=== PATIENT | male | born 1955 | race Caucasian/White ===

== ENCOUNTER 2017-11-24 11:06 | Inpatient (IN) | payer OTHER ==
[~2017-11-24] VITALS: Ht 177.8 cm; Wt 123.4 kg
[2017-11-24 11:44] LABS: BASOPHILS % (AUTO) 0.8 % (0.0-5.0); EOSINOPHILS % (AUTO) 0.5 % (0.0-8.0); HEMATOCRIT 41.2 % (42-54); LYMPHOCYTES % (AUTO) 9.1 % (21.0-51.0); MEAN CORPUSCULAR HEMOGLOBIN 29.4 pg (27.0-33.0); MEAN CORPUSCULAR HGB CONC 34.9 g/dL (32.0-36.0); MEAN CORPUSCULAR VOLUME 84.2 fL (79-99); MONOCYTES % (AUTO) 6.5 % (3.0-13.0); NEUTROPHILS % (AUTO) 83.1 % (40.0-77.0); PLATELET COUNT (AUTO) 267 K/uL (130-400); WHITE BLOOD COUNT (AUTO) 18.5 K/uL (4.8-10.8)
[2017-11-24] MEDS ORDERED: CEFTRIAXONE SODIUM 2 GM VIAL ONE (11:46)
[2017-11-24] MEDS ORDERED: SODIUM CHLORIDE 0.9% 1000ML 1,000 ML IV ONE (11:46)
[2017-11-24] MEDS ORDERED: VANCOMYCIN 2 GM in SODIUM CHLORIDE 0.9% 500ML 500 ML IV SCH (12:00)
[2017-11-24 12:04] LABS: INR 1.18 (0.85-1.15); PROTHROMBIN TIME 12.3 SEC (9.6-11.6)
[2017-11-24 12:17] LABS: CARBON DIOXIDE 25 mmol/L (21-32); CHLORIDE 101 mmol/L (101-111); CREATININE 1.2 mg/dL (0.5-1.5); GLOMERULAR FILTR. RATE CALC 65 mL/min (>60); GLUCOSE,RANDOM 116 mg/dL (70-105); POTASSIUM 3.2 mmol/L (3.5-5.1); SODIUM SERUM 137 mmol/L (136-145); UREA NITROGEN, BLOOD 16 mg/dL (7-18)
[2017-11-24 12:29] LABS: ALANINE AMINOTRANSFERASE 59 U/L (12-78); ALBUMIN 2.7 g/dL (3.5-5.0); ASPARTATE AMINOTRANSFERASE 37 U/L (10-37); BILIRUBIN,TOTAL 0.9 mg/dL (0.2-1.0); CREATINE KINASE MB 1.6 ng/mL (0.5-3.6); CREATINE KINASE, TOTAL 135 U/L (21-232); MYOGLOBIN 161 ng/mL (10-92); TOTAL PROTEIN, SERUM 7.5 g/dL (6.0-8.3); TROPONIN I < 0.04 ng/mL (0.00-0.06)
[2017-11-24 13:37] LABS: APPEARANCE,URINE CLEAR (CLEAR); BILIRUBIN,URINE NEGATIVE (NEGATIVE); COLOR,URINE YELLOW (YELLOW); GLUCOSE, URINE (UA) 100 mg/dL (NEGATIVE); KETONES,URINE NEGATIVE (NEGATIVE); LEUKOCYTE ESTERASE ,URINE NEGATIVE (NEGATIVE); NITRATE,URINE NEGATIVE (NEGATIVE); OCCULT BLOOD,URINE NEGATIVE (NEGATIVE); PROTEIN,URINE NEGATIVE (NEGATIVE); UROBILINOGEN,URINE >=8.0 mg/dL (0.2-1.0)
[2017-11-24 13:59] LABS: BACTERIA,URINE Rare /HPF (None Seen); SQUAMOUS EPITHELIAL CELL,UR Rare /HPF (0-2); WBC,URINE 0-1 /HPF (0-1)
[2017-11-24 15:01] VITALS: BP 151/86
[2017-11-24] MEDS ORDERED: ACETAMINOPHEN 325 MG TAB PO PRN ×2 (16:30)
[2017-11-24] MEDS ORDERED: CLONIDINE HCL 0.1 MG TABLET PO PRN (16:30)
[2017-11-24] MEDS ORDERED: MORPHINE SULFATE 2 MG/ML 1ML SYG IVP PRN (16:30)
[2017-11-24] MEDS ORDERED: ONDANSETRON HCL MDV 20ML 2 MG/ML VIAL IVP PRN (16:30)
[2017-11-24] MEDS ORDERED: LACTULOSE 20 GM/30 ML UDCUP PO PRN (16:30)
[2017-11-24] MEDS ORDERED: ASPI81TA40 PO (17:13)
[2017-11-24] MEDS: ZOSYN 3.375GM+NS 50ML 50 ML IV SCH (17:22)
[2017-11-24 19:40] VITALS: BP 145/78
[2017-11-24] MEDS ORDERED: LIDOCAINE HCL-MPF 1% 2ML VIAL IVP PRN (23:45)
[2017-11-24] MEDS ORDERED: POTASSIUM CHLORIDE 10% ELIXIR 20 MEQ/15 ML UDCUP PO PRN (23:45)
[2017-11-24] MEDS ORDERED: VANCOMYCIN PROTOCOL PER PHARMACY IV SCH (23:45)
[2017-11-24] MEDS ORDERED: POTASSIUM CHLORIDE 20MEQ/100ML 100 ML IV PRN (23:45)
[2017-11-24 23:57] VITALS: BP 132/71
[2017-11-25] MEDS: ZOSYN 3.375GM+NS 50ML 50 ML IV SCH ×3 (01:45→17:19)
[2017-11-25 03:25] VITALS: BP 144/77
[2017-11-25 04:50] LABS: HEMATOCRIT 36.3 % (42-54); MEAN CORPUSCULAR HEMOGLOBIN 29.7 pg (27.0-33.0); MEAN CORPUSCULAR VOLUME 84.8 fL (79-99); PLATELET COUNT (AUTO) 250 K/uL (130-400); RED BLOOD CELL COUNT(AUTO) 4.28 MIL/uL (4.50-6.20); RED CELL DISTRIBUTION WIDTH 14.2 % (11.0-15.5); WHITE BLOOD COUNT (AUTO) 14.2 K/uL (4.8-10.8)
[2017-11-25 05:01] LABS: CREATININE 1.2 mg/dL (0.5-1.5); POTASSIUM 3.3 mmol/L (3.5-5.1)
[2017-11-25] MEDS: POTASSIUM CHLORIDE 20 MEQ ERTAB PO PRN ×2 (05:55→14:44)
[2017-11-25] MEDS: VANCOMYCIN 1GM+NS 250ML 250 ML IV SCH ×3 (05:55→22:12)
[2017-11-25 07:53] VITALS: BP 132/73
[2017-11-25] MEDS ORDERED: ACETAMINOPHEN-CODEINE 300/30MG TAB PO PRN ×2 (08:00)
[2017-11-25] MEDS ORDERED: HYDRALAZINE HCL 20 MG/ML VIAL IV PRN (08:00)
[2017-11-25] MEDS: ASPIRIN 81 MG EC TAB PO SCH (09:28)
[2017-11-25] MEDS: ENOXAPARIN SODIUM 40 MG/0.4 ML SYRINGE SQ SCH (09:29)
[2017-11-25 11:49] VITALS: BP 138/72
[2017-11-25 16:17] VITALS: BP 145/77
[2017-11-25 19:00] VITALS: BP 144/70
[2017-11-25 23:00] VITALS: BP 153/77
[2017-11-26] MEDS: ZOSYN 3.375GM+NS 50ML 50 ML IV SCH ×2 (00:23→08:54)
[2017-11-26 03:00] VITALS: BP 134/76
[2017-11-26 05:28] LABS: HEMATOCRIT 35.6 % (42-54); MEAN CORPUSCULAR HEMOGLOBIN 29.6 pg (27.0-33.0); MEAN CORPUSCULAR HGB CONC 34.8 g/dL (32.0-36.0); PLATELET COUNT (AUTO) 249 K/uL (130-400); RED BLOOD CELL COUNT(AUTO) 4.19 MIL/uL (4.50-6.20); RED CELL DISTRIBUTION WIDTH 14.1 % (11.0-15.5); WHITE BLOOD COUNT (AUTO) 8.7 K/uL (4.8-10.8)
[2017-11-26 05:49] LABS: CREATININE 1.2 mg/dL (0.5-1.5); POTASSIUM 3.7 mmol/L (3.5-5.1)
[2017-11-26] MEDS ORDERED: COMPOUND IV REFRIGERATED 1 EACH IVSOLN MISC PRN (06:30)
[2017-11-26 07:00] VITALS: BP 133/75
[2017-11-26] MEDS: ASPIRIN 81 MG EC TAB PO SCH (08:54)
[2017-11-26] MEDS: VANCOMYCIN 1.75 GM in SODIUM CHLORIDE 0.9% 250 ML IV SCH ×2 (08:54→21:55)
[2017-11-26] MEDS: ENOXAPARIN SODIUM 40 MG/0.4 ML SYRINGE SQ SCH (08:54)
[2017-11-26 11:00] VITALS: BP 145/76
[2017-11-26 15:37] VITALS: BP 132/73
[2017-11-26 20:00] VITALS: BP 136/74
[2017-11-27] VITALS: BP 138/78
[2017-11-27] MEDS: ZOSYN 3.375GM+NS 50ML 50 ML IV SCH ×3 (00:46→18:27)
[2017-11-27 04:00] VITALS: BP 132/72
[2017-11-27 05:58] LABS: HEMATOCRIT 34.7 % (42-54); MEAN CORPUSCULAR HEMOGLOBIN 29.8 pg (27.0-33.0); MEAN CORPUSCULAR HGB CONC 35.1 g/dL (32.0-36.0); PLATELET COUNT (AUTO) 236 K/uL (130-400); RED BLOOD CELL COUNT(AUTO) 4.08 MIL/uL (4.50-6.20); RED CELL DISTRIBUTION WIDTH 14.2 % (11.0-15.5); WHITE BLOOD COUNT (AUTO) 6.1 K/uL (4.8-10.8)
[2017-11-27 06:10] LABS: CREATININE 1.1 mg/dL (0.5-1.5)
[2017-11-27 07:00] VITALS: BP 149/77
[2017-11-27] MEDS: VANCOMYCIN 1.75 GM in SODIUM CHLORIDE 0.9% 250 ML IV SCH ×2 (07:36→19:04)
[2017-11-27] MEDS: ENOXAPARIN SODIUM 40 MG/0.4 ML SYRINGE SQ SCH (10:29)
[2017-11-27] MEDS: ASPIRIN 81 MG EC TAB PO SCH (10:29)
[2017-11-27 10:50] VITALS: BP 139/75
[2017-11-27 16:00] VITALS: BP 139/70
[2017-11-27 20:00] VITALS: BP 138/78
[2017-11-28] VITALS (7 sets, daily range): BP systolic 129–144; BP diastolic 64–84
[2017-11-28] MEDS: ZOSYN 3.375GM+NS 50ML 50 ML IV SCH ×3 (01:02→17:04)
[2017-11-28] MEDS: VANCOMYCIN 1.75 GM in SODIUM CHLORIDE 0.9% 250 ML IV SCH ×2 (07:38→18:43)
[2017-11-28] MEDS: ASPIRIN 81 MG EC TAB PO SCH (09:39)
[2017-11-28] MEDS: ENOXAPARIN SODIUM 40 MG/0.4 ML SYRINGE SQ SCH (09:40)
[2017-11-29] MEDS: ZOSYN 3.375GM+NS 50ML 50 ML IV SCH ×2 (01:48→09:34)
[2017-11-29 04:00] VITALS: BP 131/67
[2017-11-29] MEDS: VANCOMYCIN 1.75 GM in SODIUM CHLORIDE 0.9% 250 ML IV SCH (07:26)
[2017-11-29 08:16] VITALS: BP 140/74
[2017-11-29] MEDS ORDERED: AMOX-426 PO (09:31)
[2017-11-29] MEDS ORDERED: DOXY100T2 PO (09:31)
[2017-11-29] MEDS: ASPIRIN 81 MG EC TAB PO SCH (09:33)
[2017-11-29] MEDS: ENOXAPARIN SODIUM 40 MG/0.4 ML SYRINGE SQ SCH (09:34)
== END 2017-11-29 11:45 | disposition home or self-care (01) | DRG 872 ==
LOC: EDH 11:06 → OBSVTOIN 13:16 → 3BH 13:16
PROVIDERS: ADMIT Family Medicine; ATTEND Family Medicine
PROC: 5A09357 Assistance with Respiratory Ventilation, Less than 24 Consecutive Hours, Continuous Positive Airway Pressure (ICD-10-PCS; principal; 2017-11-24)
PROC: 5A09357 Assistance with Respiratory Ventilation, Less than 24 Consecutive Hours, Continuous Positive Airway Pressure (ICD-10-PCS; 2017-11-25)
PROC: 5A09357 Assistance with Respiratory Ventilation, Less than 24 Consecutive Hours, Continuous Positive Airway Pressure (ICD-10-PCS; 2017-11-27)
PROC: 5A09357 Assistance with Respiratory Ventilation, Less than 24 Consecutive Hours, Continuous Positive Airway Pressure (ICD-10-PCS; 2017-11-28)
DX: A41.9 Sepsis, unspecified organism (principal); L03.116 Cellulitis of left lower limb; E87.6 Hypokalemia; G47.33 Obstructive sleep apnea (adult) (pediatric)
CPT/HCPCS: 36415; 76882; 80048; 80053; 80202; 81001; 82550; 82553; 83605; 83874; 84484; 85025; 85027; 85610; 85730; 87040; 87088; 93971; J0696; J1650; J2543; J3370; J7030; J7040

== ENCOUNTER → 2020-05-16 | Outpatient (CLI) | payer MEDICARE ==
[~2020-05-16] MED LIST: AMOX-426 PO; ASPI81TA40 PO; DOXY100T2 PO
== END | disposition home or self-care (01) ==
LOC: SLP 20:28
PROVIDERS: ATTEND Family Medicine
DX: G47.33 Obstructive sleep apnea (adult) (pediatric) (principal)
CPT/HCPCS: 95810; 95811